=== PATIENT | male | born 1980 | race Caucasian/White ===

== ENCOUNTER 2019-01-20 03:22 | Emergency (ER) | payer OTHER ==
[~2019-01-20] VITALS: Ht 198.1 cm; Wt 129.3 kg
[2019-01-20] MEDS ORDERED: SODIUM CHLORIDE 0.9% 500 ML IVB ONE (03:51)
[2019-01-20] MEDS ORDERED: ONDANSETRON HCL 4 MG/2 ML VIAL IV ONE (04:00)
[2019-01-20] MEDS ORDERED: MORPHINE SULFATE 4 MG/ML SYR/VIAL IV ONE (04:00)
[2019-01-20 04:01] LABS: Basophils # (auto) 0 uL; Basophils % (auto) 0.3 % (0.0-2.0); Eosinophils # (auto) 0 uL; Eosinophils % (auto) 0.1 % (0.0-7.0); Hematocrit 44.8 % (41.0-53.0); Hemoglobin 15.3 g/dL (13.5-17.5); Lymphocytes # (auto) 1.3 uL; Lymphocytes % (auto) 14.5 % (10.0-50.0); Mean Corpuscular Hemoglobin 30.3 pg (28.0-32.0); Mean Corpuscular Hgb Conc. 34.1 g/dL (32.0-36.0); Mean Corpuscular Volume 88.7 fL (80.0-100.0); Monocytes # (auto) 0.4 uL; Monocytes % (auto) 4.6 % (0.0-12.0); Neutrophils # (auto) 7.2 uL; Neutrophils % (auto) 80.5 % (37.0-80.0); Nucleated Red Blood Cells % 0.1 %; Platelet Count (auto) 220 10^3/uL (140-450); Red Blood Cells 5.06 10^6/uL (4.5-5.90); Red Cell Distribution Width 12.9 % (11.8-14.3)
[2019-01-20 04:21] LABS: Albumin 4.7 g/dL (3.4-5.0); Anion Gap 11 (5-15); BUN/Creatinine Ratio 15.1; Blood Urea Nitrogen 13 mg/dL (7-18); Calcium 8.9 mg/dL (8.5-10.1); Carbon Dioxide 23 mmol/L (21-32); Chloride 105 mmol/L (98-107); GFR African American 129 mL/min; GFR Non-African American 107 mL/min; Glucose 119 mg/dL (74-106); Lipase 83 U/L (73-393); Magnesium 2.3 mg/dL (1.6-2.6); Sodium 139 mmol/L (136-145)
[2019-01-20 04:24] LABS: Alanine Aminotransferase 28 U/L (16-61); Alkaline Phosphatase 56 U/L (45-117); Aspartate Aminotransferase 18 U/L (15-37); Bilirubin, Total 1.2 mg/dL (0.2-1.0); Total Protein 8.4 g/dL (6.4-8.2)
[2019-01-20 05:05] LABS: INR 1.07 (0.9-1.15); Partial Thromboplastin Time 29.1 sec (23.64-32.05)
[2019-01-20 05:30] VITALS: BP 147/82
== END 2019-01-20 06:00 | disposition home or self-care (01) ==
LOC: ER 03:31
DX: R10.84 Generalized abdominal pain (principal); R19.7 Diarrhea, unspecified
CPT/HCPCS: 36415; 74176; 80053; 82150; 83605; 83690; 83735; 85025; 85610; 85730; 94761; 96361; 96374; 96375; 99284; J2270; J2405; J7040